=== PATIENT | female | born 1995 | race Caucasian/White ===

== ENCOUNTER → 2019-07-02 | Outpatient (CLI) | payer OTHER ==
--- NOTE | 2019-07-02 19:11 | US ---
EXAMINATION TYPE: US transvaginal DATE OF EXAM: 07/02/2019 COMPARISON: CT 2013 CLINICAL HISTORY: O03.9 Complete or unspecified spontaneous . Miscarriage. Hx PCOS. A1. TECHNIQUE: Transvaginal (TV). Date of LMP: Unknown EXAM MEASUREMENTS: Uterus: 6.0 x 4.2 x 2.7 cm Endometrial Stripe: 0.26 cm Right Ovary: 3.2 x 1.7 x 1.7 cm Left Ovary: 3.1 x 1.8 x 1.8 cm 1. Uterus: Anteverted. Appears slightly heterogeneous. Cervix appears to be retroverted. Hypoechoic shadowing area in the cervix: 0.9 x 0.6 x 0.6 cm. 2. Endometrium: Appears to be wnl. 3. Right Ovary: Follicles seen. 4. Left Ovary: Follicles seen. 5. Bilateral Adnexa: Appear to be wnl. 6. Posterior cul-de-sac: Fluid is seen. IMPRESSION: NO ACUTE SONOGRAPHIC PROCESS.
== END | disposition home or self-care (01) ==
LOC: RADUSWWP 06-26 07:18
PROVIDERS: ATTEND Nurse Practitioner Family
DX: O03.9 Complete or unspecified spontaneous abortion without complication (principal)
CPT/HCPCS: 76830

== ENCOUNTER 2021-01-31 03:53 | Emergency (ER) | payer OTHER ==
[2021-01-31 04:01] VITALS: BP 130/84; PULSE 109; RESP 16; TEMP 97.8
[2021-01-31] MEDS ORDERED: IBUPROFEN 800 MG TAB PO STA (04:16)
[2021-01-31] MEDS ORDERED: Acetaminophen-Codeine 300-30mg TAB PO STA (04:16)
--- NOTE | 2021-01-31 04:27 | ED ---
Fall HPI - General Chief Complaint: Fall Stated Complaint: Fall, hand injury Time Seen by Provider: 01/31/21 04:02 Source: patient, RN notes reviewed, old records reviewed Mode of arrival: ambulatory - History of Present Illness Initial Comments: This is a 25-year-old female to the emergency department for evaluation. Patient presents status post fall. Patient had a fall from standing with no other injury noted. Patient has no other significant complaints. Patient fell off a porch landing on her hand with significant hand injury to the middle joint MD Complaint: fall -: hour(s) Fall From: standing, from height (distance), down stairs (#) When Fall Occurred: 1 hour [employer] Fall Witnessed: yes, by family, yes, by bystander Place Fall Occurred: home Loss of Consciousness: none Prolonged Down Time?: no Symptoms Prior to Fall: none Location - Extremities: Left: Hand Severity: moderate Severity scale (1-10): 4 Quality: burning Context: tripped/slipped, alcohol use Associated Symptoms: denies - Related Data Previous Rx's Medication Instructions Recorded Doxycycline Monohydrate [Monodox] 100 mg PO Q12HR #20 cap 04/26/14 Allergies Allergy/AdvReac Type Severity Reaction Status Date / Time bee venom protein (honey bee) Allergy Swelling Verified 01/31/21 04:01 Review of Systems ROS Statement: Those systems with pertinent positive or pertinent negative responses have been documented in the HPI. ROS Other: All systems not noted in ROS Statement are negative. Past Medical History Past Medical History: No Reported History History of Any Multi-Drug Resistant Organisms: None Reported Past Surgical History: Appendectomy, Orthopedic Surgery Additional Past Surgical History / Comment(s): facial plastic reconstructive surgery r/t dog bite. left shoulder Past Psychological History: No Psychological Hx Reported, Anxiety, Bipolar, Depression Smoking Status: Current every day smoker Past Alcohol Use History: Occasional Past Drug Use History: None Reported General Exam - General Exam Comments Initial Comments: Patient has full range of motion to hand but does have significant deformity to the middle joint of the middle finger Limitations: no limitations General appearance: alert, in no apparent distress Head exam: Present: atraumatic, normocephalic, normal inspection Eye exam: Present: normal appearance, PERRL, EOMI. Absent: scleral icterus, conjunctival injection, periorbital swelling ENT exam: Present: normal exam, mucous membranes moist Neck exam: Present: normal inspection. Absent: tenderness, meningismus, lymphadenopathy Respiratory exam: Present: normal lung sounds bilaterally. Absent: respiratory distress, wheezes, rales, rhonchi, stridor Cardiovascular Exam: Present: regular rate, normal rhythm, normal heart sounds. Absent: systolic murmur, diastolic murmur, rubs, gallop, clicks GI/Abdominal exam: Present: soft, normal bowel sounds. Absent: distended, tenderness, guarding, rebound, rigid Extremities exam: Present: normal inspection, full ROM, normal capillary refill. Absent: tenderness, pedal edema, joint swelling, calf tenderness Back exam: Present: normal inspection Neurological exam: Present: alert, oriented X3, CN II-XII intact Psychiatric exam: Present: normal affect, normal mood Skin exam: Present: warm, dry, intact, normal color. Absent: rash Course Vital Signs 01/31/21 03:57 Temperature 97.8 F Pulse Rate 109 H Respiratory 16 Rate Blood Pressure 130/84 O2 Sat by Pulse 95 Oximetry - Reevaluation(s) Reevaluation #1: Medical record is reviewed Patient symptoms improved here in the ER Patient informed results and questions answered Patient is in no acute distress Medical Decision Making - Medical Decision Making 25 female to the emergency department status post fall with head injury. Patient does seem like he has she possibly had a dislocation of the left hand with significant swelling and deformity but no fractures noted. Patient is given follow-up with orthopedics - Radiology Data Radiology results: report reviewed (X-ray left hand is negative for traumatic injury), image reviewed Disposition Clinical Impression: Fall, Contusion of left hand Disposition: HOME SELF-CARE Condition: Good Instructions (If sedation given, give patient instructions): Contusion in Adults (ED) Is patient prescribed a controlled substance at d/c from ED?: No Referrals: Fredy Moss DO [Doctor of Osteopathic Medicine] - 1-2 days
--- NOTE | 2021-01-31 04:46 | XR ---
EXAMINATION TYPE: XR hand complete LT DATE OF EXAM: 01/31/2021 COMPARISON: NONE HISTORY: Left hand pain TECHNIQUE: 3 views FINDINGS: I see no fracture nor dislocation. Joint spaces are fairly normal. There is soft tissue swe lling on the dorsum of the distal metacarpals on the lateral view. There is no subluxation. IMPRESSION: Posterior soft tissue swelling. No fracture.
== END 2021-01-31 05:09 | disposition home or self-care (01) ==
LOC: EC 03:53
DX: S60.222A Contusion of left hand, initial encounter (principal); F17.200 Nicotine dependence, unspecified, uncomplicated; Z91.030 Bee allergy status; W01.0XXA Fall on same level from slipping, tripping and stumbling without subsequent striking against object, initial encounter; Y92.009 Unspecified place in unspecified non-institutional (private) residence as the place of occurrence of the external cause
CPT/HCPCS: 99283

== ENCOUNTER → 2021-10-03 | Outpatient (CLI) | payer OTHER | END | disposition home or self-care (01) | LOC: LABWHC1 12:41 | PROVIDERS: ATTEND Nurse Practitioner Family | DX: Z53.9 Procedure and treatment not carried out, unspecified reason (principal) ==

== ENCOUNTER → 2021-12-08 | Day surgery (SDC) | payer OTHER ==
[2021-12-07 09:26] VITALS: BMI 37.0
[~2021-12-08] MED LIST: LACTATED RINGERS 1,000 ML IV SCH; LIDOCAINE 1% (10MG/ML) FOR IV START INTRADERMA PRN; LIDOCAINE 2% INJ 20 MG/ML (2 ML VIAL) ONE; PROPOFOL 10 MG/ML 20 ML VIAL IV ONE
[2021-12-08 06:57] VITALS: RESP 16; TEMP 97.3
--- NOTE | 2021-12-08 08:11 | P.PCN ---
Date of Procedure: 12/08/21 Procedure(s) Performed: Brief history: Patient is a pleasant 26-year-old white female scheduled for an elective upper endoscopy as well as colonoscopy as a part of evaluation of abdominal pain, chronic diarrhea and heartburn for the last several months duration Procedure performed: Esophagogastroduodenoscopy with biopsy Colonoscopy with biopsy Preoperative diagnosis: GERD/abdominal pain/chronic diarrhea of several months duration Anesthesia: MAC Procedure: After informed consent was obtained from the patient was brought into the endoscopy unit and IV sedation was administered by anesthesia under continuous monitoring. Initially upper endoscopy was done. The Olympus GF 160 video endoscope was inserted inserted into the mouth and esophagus intubated without any difficulty and was gradually advanced into the stomach and duodenum and carefully examined. The bulb and second part of the duodenum appeared normal. Biopsies from this area to Rule out celiac disease. The scope was then withdrawn into the stomach adequately insufflated with air and upon careful examination the antrum had mild gastritis and biopsies were done from this area. The body, cardia and fundus appeared normal. The scope was then withdrawn into the esophagus. The GE junction was located at 40 cm to the incisors. It appeared regular with differential erythema consistent with LA grade B reflux esophagitis. Rest of the esophagus appeared normal. Patient tolerated the procedure well. At this time the patient continued to remain sedation. Initial digital rectal examination was normal. Olympus CF 160 video colonoscope was then inserted into the rectum and gradually advanced to the cecum without any difficulty. Careful examination was performed as the scope was gradually being withdrawn. The prep was excellent. The cecum, ascending colon, transverse colon, descending colon, sigmoid colon and rectum appeared normal. Random biopsies were done from ascending and descending colon to rule out microscopic/collagenous colitis. Retroflexion was performed in the rectum and no lesions were noted. Patient tolerated the procedure well. Impression: 1. Upper endoscopy revealed mild antral gastritis and LA grade B reflux esophagitis 2. Colonoscopy was within normal limits limits with no evidence of colorectal neoplasia Recommendations: Findings of this examination were discussed with the patient as well as her family. She was advised to follow with the biopsy results. She'll be seen in office in 2-3 weeks.
[2021-12-08 08:46] VITALS: BP 132/80; PULSE 87
== END ==
LOC: ORWHC2ENDO 06:36
PROVIDERS: ATTEND Internal Medicine Gastroenterology
DX: K29.50 Unspecified chronic gastritis without bleeding (principal); K21.00 Gastro-esophageal reflux disease with esophagitis, without bleeding; K52.9 Noninfective gastroenteritis and colitis, unspecified; J45.909 Unspecified asthma, uncomplicated; F17.210 Nicotine dependence, cigarettes, uncomplicated; F41.9 Anxiety disorder, unspecified; F31.9 Bipolar disorder, unspecified; D64.9 Anemia, unspecified; Z79.899 Other long term (current) drug therapy; Z91.030 Bee allergy status
CPT/HCPCS: 81025; 88305; 45380; 43239; J2704; J2001